=== PATIENT | female | born 1980 | race Caucasian/White ===

== ENCOUNTER 2020-01-27 12:07 | Emergency (ER) | payer OTHER ==
[2020-01-27 12:13] VITALS: BP 141/89
[2020-01-27] MEDS ORDERED: HYDROCODONE/ACETAMINOPHEN 5-325 MG TABLET PO ONE (12:31)
--- NOTE | 2020-01-27 12:40 | ER Document Report ---
HPI - HPI Patient complains to provider of: Right shoulder pain Time Seen by Provider: 01/27/20 12:27 Pain Level: 3 Context: 39-year-old female past medical history significant for chronic back pain, anxiety, depression, presents to the emergency room complaining of worsening right shoulder pain for the past 2 days. Denied any trauma or injury. States she is here visiting from [place] helping her family move. States she was doing a lot of heavy lifting yesterday. Denies any acute trauma or injury. States she normally takes Flexeril and Mobic but she left that at her home in [place]. Has tried taking Tylenol with minimal relief. Denies any numbness or tingling. No previous trauma or injury to her right shoulder. Associated Symptoms: None Exacerbated by: Movement Relieved by: Denies Similar symptoms previously: No Recently seen / treated by doctor: No - ROS Systems Reviewed and Negative: Yes All other systems reviewed and negative - NEURO Neurology: DENIES: Weakness - RESPIRATORY Respiratory: DENIES: Trouble Breathing - REPRODUCTIVE Reproductive: DENIES: : - MUSCULOSKELETAL Musculoskeletal: REPORTS: Extremity pain - DERM Skin Color: Normal, [place] Skin Problems: None Past Medical History - General Information source: Patient - Social History Smoking Status: Current Every Day Smoker Frequency of alcohol use: None Drug Abuse: None Family History: Reviewed & Not Pertinent Pulmonary Medical History: Reports: Hx Asthma Psychiatric Medical History: Reports: Hx Depression Vertical Provider Document - CONSTITUTIONAL Agree With Documented VS: Yes Exam Limitations: No Limitations General Appearance: Mild Distress - INFECTION CONTROL TRAVEL OUTSIDE OF THE [place] IN LAST 30 DAYS: No - HEENT HEENT: Atraumatic, Normocephalic - NECK Neck: Normal Inspection, Supple, Thyroid Normal - RESPIRATORY Respiratory: Breath Sounds Normal, No Respiratory Distress - CARDIOVASCULAR Cardiovascular: Regular Rate, Regular Rhythm, No Murmur - MUSCULOSKELETAL/EXTREMETIES Musculoskeletal/Extremeties: Tender - Tenderness on palpation to the right AC joint of the right shoulder. There is no obvious deformity noted. There is no swelling. Clavicle is nontender to palpation. She has painful range of motion with internal and external rotation. - NEURO Level of Consciousness: Awake, Alert, Appropriate Motor/Sensory: No Motor Deficit, No Sensory Deficit Notes: Positive right radial pulse. Capillary refill less than 3 seconds. Neurovascularly intact. - DERM Integumentary: Warm, Dry, No Rash Course - Re-evaluation Re-evalutation: 01/27/20 13:36 Patient is resting comfortably with decreased pain. Reviewed negative x-ray results with patient. Patient was counseled to rest, use ice 20 minutes 3 times a day. Patient states she is returning to [place] today. Continue with her Flexeril and Mobic as prescribed. Wear sling until seen by orthopedics. Sling applied by nursing staff as documented. Outpatient follow-up with orthopedics if not improving in 2 to 3 days. Patient states she is returning back to [place] this evening and will follow up with her primary care physician this week. Patient was given strict return to the emergency room guidelines. Return for any new or worsening symptoms. All questions were answered. Patient verbalized understanding and agrees with plan of care. 01/27/20 13:51 01/27/20 20:26 - Vital Signs Vital signs: Temp Pulse Resp BP Pulse Ox 98.1 F 86 20 141/89 H 98 01/27/20 12:12 01/27/20 12:12 01/27/20 12:12 01/27/20 12:12 01/27/20 12:12 - Diagnostic Test Radiology reviewed: Reports reviewed Procedures - Immobilization Right Shoulder Time completed: 12:30 Pre-Proc Neuro Vasc Exam: Normal Immobilizer type: Sling Performed by: PCT Post-Proc Neuro Vasc Exam: Normal Alignment checked and good: Yes Discharge - Discharge Clinical Impression: Right shoulder pain Qualifiers: Chronicity: acute Qualified Code(s): M25.511 - Pain in right shoulder Condition: Stable Disposition: HOME, SELF-CARE Instructions: Shoulder Injury ([facility]) Additional Instructions: Continue with your Flexeril and Mobic. Wear sling for comfort. Follow-up with your primary care physician if not improving in 2 to 3 days. Return to the emergency room for any new or worsening symptoms. Forms: Return to Work
--- NOTE | 2020-01-27 13:35 | RADIOLOGY REPORT (SQ) ---
EXAM DESCRIPTION: SHOULDER RIGHT 2 OR MORE VIEWS IMAGES COMPLETED DATE/TIME: 01/27/2020 1:08 pm REASON FOR STUDY: pain COMPARISON: None. NUMBER OF VIEWS: Three views. TECHNIQUE: Internal rotation, external rotation, and Y view images acquired of the right shoulder. LIMITATIONS: None. FINDINGS: MINERALIZATION: Normal. BONES: No acute fracture. No worrisome bone lesions. No significant osteophytes. GLENOHUMERAL JOINT: No significant findings. ACROMIOCLAVICULAR JOINT: No large osteophytes. SOFT TISSUES: No calcifications. VISUALIZED RIBS, SPINE, AND LUNG: No other significant finding. OTHER: No other significant finding. IMPRESSION: NEGATIVE STUDY OF THE RIGHT SHOULDER. NO EXPLANATION FOR PAIN. TECHNICAL DOCUMENTATION: JOB ID: [id number] 2010 [employer] All Rights Reserved Reading location - IP/workstation name: [email or web address]
== END 2020-01-27 13:49 | disposition home or self-care (01) ==
LOC: ER 12:07
DX: M25.511 Pain in right shoulder (principal); M54.9 Dorsalgia, unspecified; G89.29 Other chronic pain; F41.9 Anxiety disorder, unspecified; F32.9 Major depressive disorder, single episode, unspecified; Z79.899 Other long term (current) drug therapy; F17.200 Nicotine dependence, unspecified, uncomplicated; J45.909 Unspecified asthma, uncomplicated
CPT/HCPCS: 99283